=== PATIENT | male | born 1975 | race Caucasian/White ===

== ENCOUNTER 2017-04-30 10:18 | Emergency (ER) | payer OTHER ==
[~2017-04-30] VITALS: Ht 180.3 cm; Wt 61.2 kg
[~2017-04-30 10:18] MED LIST: ACETAMINOPHEN-1 EAC1 PO; ANAPROX DS550 MG PO; CEPHALEXIN500 MG PO; NORCO 10-325 T1 EACH PO; NORCO 5-325 TA1 EACH PO; PENICILLIN V P250 MG PO; PENICILLIN V P500 MG PO
== END 2017-04-30 10:38 | disposition home or self-care (01) ==
LOC: ED 10:18
DX: K08.89 Other specified disorders of teeth and supporting structures (principal)

== ENCOUNTER 2017-07-23 11:03 | Emergency (ER) | payer OTHER ==
[~2017-07-23] VITALS: Ht 180.3 cm; Wt 61.2 kg
[2017-07-23] MEDS ORDERED: HYDROXYZINE HCL25 MG PO (16:06)
[2017-07-23] MEDS ORDERED: FAMOTIDINE20 MG PO (16:06)
[2017-07-23] MEDS ORDERED: EPIPEN 2-P0.3 MG/0.3 IM (16:06)
[2017-07-23] MEDS ORDERED: PREDNISONE10 MG PO (16:06)
== END 2017-07-23 16:20 | disposition home or self-care (01) ==
LOC: ED 11:03
DX: T88.6XXA Anaphylactic reaction due to adverse effect of correct drug or medicament properly administered, initial encounter (principal); T36.0X5A Adverse effect of penicillins, initial encounter; T78.3XXA Angioneurotic edema, initial encounter; L29.9 Pruritus, unspecified; Z88.0 Allergy status to penicillin; F17.200 Nicotine dependence, unspecified, uncomplicated
CPT/HCPCS: 96372; 96374; 96375; 99284; J2930

== ENCOUNTER 2021-07-17 15:23 | Emergency (ER) | payer OTHER ==
[~2021-07-17] VITALS: Ht 180.3 cm; Wt 67.1 kg
[~2021-07-17 15:23] MED LIST changes: +EPIPEN 2-P0.3 MG/0.3 IM; +FAMOTIDINE20 MG PO; +HYDROXYZINE HCL25 MG PO; +PREDNISONE10 MG PO
== END 2021-07-17 16:35 | disposition home or self-care (01) ==
LOC: ED 15:23
DX: H11.32 Conjunctival hemorrhage, left eye (principal); F17.200 Nicotine dependence, unspecified, uncomplicated; Z88.0 Allergy status to penicillin; Z88.1 Allergy status to other antibiotic agents
CPT/HCPCS: 99283

== ENCOUNTER 2022-02-13 20:33 | Emergency (ER) | payer OTHER ==
[~2022-02-13] VITALS: Ht 180.3 cm; Wt 67.1 kg
[2022-02-13] MEDS ORDERED: BACTRIM DS TAB1 EACH PO (21:57)
== END 2022-02-13 22:16 | disposition home or self-care (01) ==
LOC: ED 20:33
DX: L03.114 Cellulitis of left upper limb (principal); F17.200 Nicotine dependence, unspecified, uncomplicated
CPT/HCPCS: 36415; 85025; 99283; A9270

== ENCOUNTER 2022-02-17 10:01 | Emergency (ER) | payer OTHER ==
[~2022-02-17] VITALS: Ht 180.3 cm; Wt 67.1 kg
[~2022-02-17 10:01] MED LIST changes: +BACTRIM DS TAB1 EACH PO
--- OUTSIDE RECORDS SUMMARY | 2022-02-17 10:10 | XMS ---
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 [facility] has no Care Guidelines for this patient. Cr VISIT COUNT (12 MO.) [address] [facility] TOTAL 3 NOTE: Visits indicate total known visits. ED/[facility] [place] (12 MO.) 02/17/2022 10:[address] [facility] [place] TYPE: Emergency COMPLAINT: - FEVER, ANIMAL BITE 02/13/2022 20:35 [facility] [place] TYPE: Emergency COMPLAINT: - RAT BITE 07/17/2021 15:23 [facility] [place] TYPE: Emergency COMPLAINT: - EYE PROBLEM DIAGNOSES: - Conjunctival hemorrhage, left eye - Nicotine dependence, unspecified, uncomplicated - Allergy status to penicillin - Other specified disorders of eye and adnexa - Allergy status to other antibiotic agents INPATIENT VISIT TRACKING (12 MO.) No inpatient visits to display in this time frame [id number]
[2022-02-18] MEDS ORDERED: CEPHALEXIN500 M1 PO (09:52)
== END 2022-02-17 11:37 | disposition home or self-care (01) ==
LOC: ED 10:01
DX: A25 Rat-bite fevers (principal); F17.200 Nicotine dependence, unspecified, uncomplicated; Z88.0 Allergy status to penicillin; Z79.899 Other long term (current) drug therapy
CPT/HCPCS: 36415; 80053; 85025; J0696

== ENCOUNTER 2022-02-18 08:53 | Emergency (ER) | payer OTHER ==
[~2022-02-18] VITALS: Ht 180.3 cm; Wt 67.1 kg
--- OUTSIDE RECORDS SUMMARY | 2022-02-18 09:02 | XMS ---
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 [facility] has no Care Guidelines for this patient. Cr VISIT COUNT (12 MO.) [address] [facility] TOTAL 4 NOTE: Visits indicate total known visits. ED/C VISIT TRACKING (12 MO.) 02/18/2022 08:53 [facility] [place] TYPE: Emergency COMPLAINT: - WOUND CHECK 02/17/2022 10:02 [facility] [place] TYPE: Emergency COMPLAINT: - FEVER, ANIMAL [...] visits to display in this time frame [email or web address]
[2022-02-18] MEDS ORDERED: CEPHALEXIN500 M1 PO (09:52)
== END 2022-02-18 10:38 | disposition home or self-care (01) ==
LOC: ED 08:53
DX: A25 Rat-bite fevers (principal); F17.200 Nicotine dependence, unspecified, uncomplicated; Z88.0 Allergy status to penicillin; Z88.8 Allergy status to other drugs, medicaments and biological substances
CPT/HCPCS: 99283; J0696

== ENCOUNTER 2024-11-22 10:25 | Emergency (ER) | payer OTHER ==
[~2024-11-22] VITALS: Ht 180.3 cm; Wt 74.0 kg
[~2024-11-22 10:25] MED LIST changes: +CEPHALEXIN500 M1 PO
[2024-11-22] MEDS ORDERED: ANTIFUNGAL113 GM TOP (11:58)
[2024-11-22 12:05] VITALS: BP 146/74
== END 2024-11-22 12:05 | disposition home or self-care (01) ==
LOC: ED 10:25
DX: B35.4 Tinea corporis (principal); F17.200 Nicotine dependence, unspecified, uncomplicated; Z79.2 Long term (current) use of antibiotics; Z79.899 Other long term (current) drug therapy; Z88.0 Allergy status to penicillin; Z88.8 Allergy status to other drugs, medicaments and biological substances; Z88.1 Allergy status to other antibiotic agents
CPT/HCPCS: 99282